=== PATIENT | female | born 1935 | race Two or more races ===

== ENCOUNTER 2020-03-10 16:56 | Inpatient (IN) | payer MEDICARE, OTHER ==
[~2020-03-10] VITALS: Ht 152.4 cm; Wt 59.0 kg
[2020-03-10 16:59] VITALS: BP 118/76
--- NOTE | 2020-03-10 18:01 | Emergency Room Report ---
History of Present Illness General Chief Complaint: Behavioral Complaint Source: Patient, EMS Present Illness HPI 84-year-old female with history of hypertension, depression and anxiety presents to the emergency department complaining of mental exhaustion and increased depression as well as suicidal ideations. Patient denies PSAs. Patient describes being "tired of it all "and states that she wants to "go to sleep forever "when I questioned patient whether she had a plan or not she states that she thought of many different ways and gave the example of "I have lots of medications ". She states she did not attempt to hurt her self yet. Patient is very tearful and describes having a chronically ill who is on dialysis at home for which she is the only caregiver for. She reports history of anxiety attacks in the past and states that usually when she begins hyperventilating she can breathe into a brown bag and her symptoms resolve. Patient reports she had increased generalized anxiety all day and she felt "shaky ". She denies pain at this time. she denies having chest pain, nausea, vomiting, headache, cough, abdominal pain or tenderness. She denies pain at this time. Patient states that for her psychiatric conditions she has a primary prescribing physician and she states she takes Zoloft as well as Ativan. She states she is not out of her psychiatric medications and she has been taking them as described. Allergies: Coded Allergies: No Known Allergies (Verified , 11/10/06) COVID-19 Screening Contact w/high risk pt: No Recent Travel to affected area: No Experienced COVID-19 symptoms?: No Patient History PMH Narrative SOCIAL: Patient reports that she has 3 sons 2 of which are revenue cycle administrator and the other a surgeon and states that they are very busy and are unable to help. Now: No Reviewed Nursing Documentation: PMH: Agreed; PSxH: Agreed Nursing Documentation-PMH Past Medical History: No History, Except For Hx Hypertension: Yes History Of Psychiatric Problem: Yes - anxiety, depression Review of Systems All Other Systems: negative except mentioned in HPI Physical Exam Vital Signs Date Time Temp Pulse Resp B/P (MAP) Pulse Ox O2 Delivery O2 Flow Rate FiO2 03/10/20 16:53 98.8 79 18 121/79 (93) 99 Room Air Sp02 EP Interpretation: reviewed, normal General Appearance: no apparent distress, alert, GCS 15, non-toxic, thin Head: normocephalic, atraumatic Eyes: bilateral eye normal inspection, bilateral eye PERRL ENT: hearing grossly normal, normal voice Neck: full range of motion Respiratory: chest non-tender, lungs clear, normal breath sounds, no respiratory distress, no accessory muscle use, no wheezing, speaking full sentences Cardiovascular #1: regular rate, rhythm, no edema, normal capillary refill Gastrointestinal: normal bowel sounds, non tender, soft, non-distended, no guarding Musculoskeletal: normal range of motion, gait/station normal, non-tender Neurologic: alert, motor strength/tone normal, oriented x3, sensory intact, responsive, speech normal, grossly normal Psychiatric: judgement/insight normal, memory normal, depressed affect, anxious Skin: no rash, normal color Medical Decision Making PA Attestation Dr. Llamas is my supervising Physician whom patient management has been discussed with. Diagnostic Impression: Primary Impression: Generalized weakness Additional Impressions: Anxious depression Encephalopathy ER Course 84-year-old female with history of hypertension, depression and anxiety presents to the emergency department complaining of mental exhaustion and increased depression as well as suicidal ideations. Patient denies PSAs. Patient describes being "tired of it all "and states that she wants to "go to sleep forever "when I questioned patient whether she had a plan or not she states that she thought of many different ways and gave the example of "I have lots of medications ". She states she did not attempt to hurt her self yet. Patient is very tearful and describes having a chronically ill who is on dialysis at home for which she is the only caregiver for. She reports history of anxiety attacks in the past and states that usually when she begins hyperventilating she can breathe into a brown bag and her symptoms resolve. Patient reports she had increased generalized anxiety all day and she felt "shaky ". She denies pain at this time. she denies having chest pain, nausea, vomiting, headache, cough, abdominal pain or tenderness. She denies pain at this time. Patient states that for her psychiatric conditions she has a primary prescribing physician and she states she takes Zoloft as well as Ativan. She states she is not out of her psychiatric medications and she has been taking them as described. Pt is very tearful with depressed affect. Ddx considered but are not limited to OD, SI/HI, psychosis, UTI, intoxication, depression, non-compliance or non-therapeutic level of medications, Anxiety attack, Vital signs: are WNL, pt. is afebrile H&PE are most consistent with behavioral/mental health issue- Increased Depression. No acute respiratory distress at this time. Non-toxic in appearance. Pt. very tearful. ORDERS: -CBC, CMP: Unremarkable -UA: negative for infection see results attached. -UDS: negative -Salicylates and Acetaminophen: WNL -Serum ETOH-: No acute intoxication. ED INTERVENTIONS: - 500cc NS IV DISPOSITION: PT. to be admitted to Dr. Ken who agrees to medically manage pt. for generalized encephalopathy, weakness and increased depression in addition to pending PET eval. Labs Test 03/10/20 17:50 White Blood Count 5.7 K/UL (4.8-10.8) Red Blood Count 4.44 M/UL (4.20-5.40) Hemoglobin 11.4 G/DL (12.0-16.0) Hematocrit 37.0 % (37.0-47.0) Mean Corpuscular Volume 83 FL (80-99) Mean Corpuscular Hemoglobin 25.6 PG (27.0-31.0) Mean Corpuscular Hemoglobin Concent 30.7 G/DL (32.0-36.0) Red Cell Distribution Width 14.4 % (11.6-14.8) Platelet Count 183 K/UL (150-450) Mean Platelet Volume 10.0 FL (6.5-10.1) Neutrophils (%) (Auto) 57.8 % (45.0-75.0) Lymphocytes (%) (Auto) 32.1 % (20.0-45.0) Monocytes (%) (Auto) 6.6 % (1.0-10.0) Eosinophils (%) (Auto) 1.8 % (0.0-3.0) Basophils (%) (Auto) 1.7 % (0.0-2.0) Sodium Level 143 MMOL/L (136-145) Potassium Level 3.9 MMOL/L (3.5-5.1) Chloride Level 106 MMOL/L (98-107) Carbon Dioxide Level 29 MMOL/L (21-32) Anion Gap 8 mmol/L (5-15) Blood Urea Nitrogen 20 mg/dL (7-18) Creatinine 1.2 MG/DL (0.55-1.30) Estimat Glomerular Filtration Rate 43.0 mL/min (>60) Glucose Level 97 MG/DL (74-106) Calcium Level 9.3 MG/DL (8.5-10.1) Total Bilirubin 0.3 MG/DL (0.2-1.0) Aspartate Amino Transf (AST/SGOT) 20 U/L (15-37) Alanine Aminotransferase (ALT/SGPT) 19 U/L (12-78) Alkaline Phosphatase 83 U/L (46-116) Total Protein 6.9 G/DL (6.4-8.2) Albumin 3.9 G/DL (3.4-5.0) Globulin 3.0 g/dL Albumin/Globulin Ratio 1.3 (1.0-2.7) Salicylates Level 2.5 ug/mL (2.8-20) Urine Opiates Screen Negative (NEGATIVE) Acetaminophen Level < 2 MCG/ML (10-30) Urine Barbiturates Screen Negative (NEGATIVE) Phencyclidine (PCP) Screen Negative (NEGATIVE) Urine Amphetamines Screen Negative (NEGATIVE) Urine Benzodiazepines Screen Negative (NEGATIVE) Urine Cocaine Screen Negative (NEGATIVE) Urine Marijuana (THC) Screen Negative (NEGATIVE) Serum Alcohol < 3 mg/dL Last Vital Signs Date Time Temp Pulse Resp B/P (MAP) Pulse Ox O2 Delivery O2 Flow Rate FiO2 03/10/20 16:59 98.5 76 16 118/76 99 Room Air Disposition: ADMITTED INPATIENT Condition: Eri Clarke Mar 10, 2020 18:01
[2020-03-10 18:16] LABS: ANION GAP 8 mmol/L (5-15); BLOOD UREA NITROGEN 20 mg/dL (7-18); CALCIUM 9.3 MG/DL (8.5-10.1); CARBON DIOXIDE 29 MMOL/L (21-32); CHLORIDE 106 MMOL/L (98-107); CREATININE 1.2 MG/DL (0.55-1.30); POTASSIUM 3.9 MMOL/L (3.5-5.1); SODIUM 143 MMOL/L (136-145)
[2020-03-10 18:17] LABS: BASOPHILS % (AUTO) 1.7 % (0.0-2.0); EOSINOPHILS % (AUTO) 1.8 % (0.0-3.0); HEMOGLOBIN 11.4 G/DL (12.0-16.0); LYMPHOCYTES % (AUTO) 32.1 % (20.0-45.0); MEAN CORPUSCULAR VOLUME 83 FL (80-99); MONOCYTES % (AUTO) 6.6 % (1.0-10.0); NEUTROPHILS % (AUTO) 57.8 % (45.0-75.0); PLATELET COUNT 183 K/UL (150-450); RED BLOOD COUNT 4.44 M/UL (4.20-5.40); RED CELL DISTRIBUTION WIDTH 14.4 % (11.6-14.8); WHITE BLOOD COUNT 5.7 K/UL (4.8-10.8)
[2020-03-10 18:21] LABS: ALANINE AMINOTRANSFERASE 19 U/L (12-78); ALBUMIN 3.9 G/DL (3.4-5.0); ALBUMIN/GLOBULIN RATIO 1.3 (1.0-2.7); ALKALINE PHOSPHATASE 83 U/L (46-116); ASPARTATE AMINO TRANSFERASE 20 U/L (15-37); BILIRUBIN,TOTAL 0.3 MG/DL (0.2-1.0)
[2020-03-10 18:35] VITALS: BP 120/72
[2020-03-10] MEDS ORDERED: ATIVAN2 MG ORAL (19:17)
[2020-03-10] MEDS ORDERED: SERTRALINE HCL100 MG PO (19:17)
[2020-03-10 19:18] VITALS: BP 115/69
--- NOTE | 2020-03-10 21:03 | History and Physical ---
History of Present Illness General Date patient seen: Mar 10, 2020 Reason for Hospitalization: Behavioral Complaint Present Illness HPI Patient is a very pleasant 84F with essential hypertension, depressive disorder and anxiety presenting with generalized weakness and severe anxiety. Patient reports of multiple life related stressors, mainly living with a sick who requires hemodialysis. She states that today she became more anxious than usual and experienced rapid heart rate, palpitation and clamminess. Denies any CP/SOB/n/v/d/f/c. Patient reports of suicidal ideation but denies any active plans to harm herself or others. She reports for the first time having the thought of "taking the entire bottle of Ativan". She denies any delusion, visual or auditory hallucinations. Patient reports of taking Zoloft and Ativan for years to control her anxiety and depression. She reports that her condition has been worsened since 4 years ago after her 30-year old grandchild . Patient reports of needing assistance at home given her age and the 's multiple medical problems. In the ED, patient's vitals were within the normal range. Lab values including CBC,CMP and Utox were unrevealing. Allergies: Coded Allergies: No Known Allergies (Verified , 11/10/06) COVID-19 Screening Contact w/high risk pt: No Recent Travel to affected area: No Experienced COVID-19 symptoms?: No Medication History Scheduled Lorazepam* (Ativan*), 2 MG ORAL Q12HR, (Reported) Sertraline Hcl* (Zoloft*), 200 MG PO DAILY, (Reported) Patient History Healthcare decision maker Resuscitation status Advanced Directive on File Past Medical/Surgical History Past Medical/Surgical History: (1) Hypertension Review of Systems Constitutional: Reports: no symptoms, weakness - complains of generalized weakness. Eye: Reports: no symptoms ENT: Reports: no symptoms Respiratory: Reports: no symptoms Cardiovascular: Reports: no symptoms Gastrointestinal: Reports: no symptoms Genitourinary: Reports: no symptoms Musculoskeletal: Reports: no symptoms Skin: Reports: no symptoms Psychiatric: Reports: anxiety, depressed feelings, emotional problems, SI Neurological: Reports: no symptoms Endocrine: Reports: no symptoms Hematologic/Lymphatic: Reports: no symptoms Physical Exam General Appearance: no apparent distress, alert, lethargic Lines, tubes and drains: peripheral HEENT: normocephalic, atraumatic, EOMI, pharynx normal, supple Neck: non-tender, normal alignment, normal inspection Respiratory/Chest: chest wall non-tender, lungs clear, normal breath sounds, no respiratory distress, no accessory muscle use Cardiovascular/Chest: normal peripheral pulses, normal rate, regular rhythm, regularly irregular Abdomen: normal bowel sounds, non tender, soft, no organomegaly, no mass Extremities: normal range of motion, non-tender, normal inspection, no calf tenderness Skin Exam: normal pigmentation 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 normal, alert, oriented x 3 Musculoskeletal: normal muscle bulk Last 24 Hour Vital Signs Date Time Temp Pulse Resp B/P (MAP) Pulse Ox O2 Delivery O2 Flow Rate FiO2 03/10/20 20:37 98.0 75 17 112/72 98 Room Air 03/10/20 19:18 78 16 115/69 99 Room Air 03/10/20 18:35 98.2 81 18 120/72 98 Room Air 03/10/20 16:59 98.5 76 16 118/76 99 Room Air 03/10/20 16:59 76 16 Room Air 03/10/20 16:53 98.8 79 18 121/79 (93) 99 Room Air Laboratory Tests Test 03/10/20 17:50 White Blood Count 5.7 K/UL (4.8-10.8) Red Blood Count 4.44 M/UL (4.20-5.40) Hemoglobin 11.4 G/DL (12.0-16.0) L Hematocrit 37.0 % (37.0-47.0) Mean Corpuscular Volume 83 FL (80-99) Mean Corpuscular Hemoglobin 25.6 PG (27.0-31.0) L Mean Corpuscular Hemoglobin Concent 30.7 G/DL (32.0-36.0) L Red Cell Distribution Width 14.4 % (11.6-14.8) Platelet Count 183 K/UL (150-450) Mean Platelet Volume 10.0 FL (6.5-10.1) Neutrophils (%) (Auto) 57.8 % (45.0-75.0) Lymphocytes (%) (Auto) 32.1 % (20.0-45.0) Monocytes (%) (Auto) 6.6 % (1.0-10.0) Eosinophils (%) (Auto) 1.8 % (0.0-3.0) Basophils (%) (Auto) 1.7 % (0.0-2.0) Sodium Level 143 MMOL/L (136-145) Potassium Level 3.9 MMOL/L (3.5-5.1) Chloride Level 106 MMOL/L (98-107) Carbon Dioxide Level 29 MMOL/L (21-32) Anion Gap 8 mmol/L (5-15) Blood Urea Nitrogen 20 mg/dL (7-18) H Creatinine 1.2 MG/DL (0.55-1.30) Estimat Glomerular Filtration Rate 43.0 mL/min (>60) Glucose Level 97 MG/DL (74-106) Calcium Level 9.3 MG/DL (8.5-10.1) Total Bilirubin 0.3 MG/DL (0.2-1.0) Aspartate Amino Transf (AST/SGOT) 20 U/L (15-37) Alanine Aminotransferase (ALT/SGPT) 19 U/L (12-78) Alkaline Phosphatase 83 U/L (46-116) Total Protein 6.9 G/DL (6.4-8.2) Albumin 3.9 G/DL (3.4-5.0) Globulin 3.0 g/dL Albumin/Globulin Ratio 1.3 (1.0-2.7) Salicylates Level 2.5 ug/mL (2.8-20) L Urine Opiates Screen Negative (NEGATIVE) Acetaminophen Level < 2 MCG/ML (10-30) L Urine Barbiturates Screen Negative (NEGATIVE) Phencyclidine (PCP) Screen Negative (NEGATIVE) Urine Amphetamines Screen Negative (NEGATIVE) Urine Benzodiazepines Screen Negative (NEGATIVE) Urine Cocaine Screen Negative (NEGATIVE) Urine Marijuana (THC) Screen Negative (NEGATIVE) Serum Alcohol < 3 mg/dL Height (Feet): 5 Weight (Pounds): 130 Assessment/Plan Assessment/Plan: 84YO F with HTN, anxiety disorder and depression presenting with generalized weakness, severe anxiety and suicidal ideation. Initial medical work up unremarkable. Patient being admitted for further observation and medical management. #Generalized weakness #Anxiety #Panic Disorder #Depression #Encephalopathy 2/2 above -CBC, CMP: Unremarkable -UA: negative for infection see results attached. -UDS: negative -Salicylates and Acetaminophen: WNL -Serum ETOH-: No acute intoxication. -Resume home medications including ativan and zoloft. -Will request psych consult in the a.m for possibly modifying the medication regimen. -bakery worker conveyor line consult prior to discharge to provide outpatient resources such as support groups. -PT/OT. Essential Hypertension: -Resume home antihypertensives . I spent 70 minutes on this patient's case, and >50% was dedicated to counseling and/or care coordination. ~I spent an additional 35 minutes on review of medical records including prior records, consult notes, progress notes, procedures, imaging, labs, hemodynamics , and other clinical documentation. Leighton Feliciano M.D. Mar 10, 2020 21:03
[2020-03-10] MEDS ORDERED: LORazepam 1mg tab ORAL ONE (22:15)
[2020-03-10] MEDS ORDERED: Lomotil 2.5mg tab ORAL PRN (22:15)
[2020-03-10 23:44] VITALS: BP 146/78
[2020-03-11 04:00] VITALS: BP 130/65
[2020-03-11 06:17] LABS: BASOPHILS % (AUTO) 1.2 % (0.0-2.0); EOSINOPHILS % (AUTO) 2.2 % (0.0-3.0); HEMATOCRIT 31.9 % (37.0-47.0); HEMOGLOBIN 10.4 G/DL (12.0-16.0); LYMPHOCYTES % (AUTO) 36.8 % (20.0-45.0); MEAN CORPUSCULAR VOLUME 80 FL (80-99); MONOCYTES % (AUTO) 9.1 % (1.0-10.0); NEUTROPHILS % (AUTO) 50.6 % (45.0-75.0); PLATELET COUNT 155 K/UL (150-450); RED CELL DISTRIBUTION WIDTH 12.4 % (11.6-14.8); WHITE BLOOD COUNT 4.7 K/UL (4.8-10.8)
[2020-03-11 06:38] LABS: CHLORIDE 107 MMOL/L (98-107); POTASSIUM 3.9 MMOL/L (3.5-5.1); SODIUM 142 MMOL/L (136-145)
[2020-03-11 07:47] LABS: ALANINE AMINOTRANSFERASE 18 U/L (12-78); ALBUMIN 3.5 G/DL (3.4-5.0); ALBUMIN/GLOBULIN RATIO 1.3 (1.0-2.7); ALKALINE PHOSPHATASE 71 U/L (46-116); ANION GAP 8 mmol/L (5-15); ASPARTATE AMINO TRANSFERASE 18 U/L (15-37); BILIRUBIN,TOTAL 0.4 MG/DL (0.2-1.0); BLOOD UREA NITROGEN 20 mg/dL (7-18); CARBON DIOXIDE 27 MMOL/L (21-32); CREATININE 1.1 MG/DL (0.55-1.30)
[2020-03-11 08:00] VITALS: BP 143/63
[2020-03-11] MEDS: Heparin 5000 units/ml inj SUBQ SCH ×2 (09:40→20:42)
[2020-03-11 12:00] VITALS: BP 129/62
--- NOTE | 2020-03-11 13:49 | General Progress Note ---
Assessment/Plan Assessment/Plan: 84YO F with HTN, anxiety disorder and depression presenting with generalized weakness, severe anxiety and suicidal ideation. Initial medical work up unremarkable. #Generalized weakness #Anxiety #Panic Disorder #Depression #Acute stress reaction #Transient Acute Encephalopathy 2/2 above -CBC, CMP: Unremarkable -UA: negative for infection see results attached. -UDS: negative -Salicylates and Acetaminophen: WNL -Serum ETOH-: No acute intoxication. -Resume home medications including ativan and zoloft. -Psychiatry and Neurology consulted -fruit or nut farmworker consult prior to discharge to provide outpatient resources such as support groups. -PT/OT. Essential Hypertension -Need complete home med list I spent 35 minutes on this patient's case, and 20 min was dedicated to counseling and/or care coordination with other MDs, family, nursing I spent an additional 35 minutes on review of medical records including prior hospital records, consult notes, progress notes, procedures, imaging, labs, hemodynamics, and other clinical documentation. Time of note may not reflect time of encounter. Subjective Date patient seen: Mar 11, 2020 Time patient seen: 13:47 Constitutional: Denies: chills, fever Cardiovascular: Denies: chest pain Respiratory: Denies: cough Gastrointestinal/Abdominal: Denies: abdominal pain Genitourinary: Denies: burning Neurologic/Psychiatric: Reports: depressed, emotional problems; Denies: anxiety , headache, numbness Endocrine: Denies: excessive sweating, flushing Allergies: Coded Allergies: No Known Allergies (Verified , 11/10/06) Subjective Follow up for acute stress reaction, anxiety, increased psychosocial stressors, transient acute encephalopathy. Remains tearful and sad about her home/financial situation and inability to adequately care for her debilitated . Patient denies suicidal ideations at this time. Objective Last 24 Hour Vital Signs Date Time Temp Pulse Resp B/P (MAP) Pulse Ox O2 Delivery O2 Flow Rate FiO2 03/11/20 09:00 Room Air 03/11/20 08:00 97.7 63 18 143/63 (89) 97 03/11/20 04:00 98.2 60 18 130/65 (86) 96 03/10/20 23:44 99.3 63 18 146/78 (100) 97 03/10/20 23:10 Room Air 03/10/20 20:37 98.0 75 17 112/72 98 Room Air 03/10/20 19:18 78 16 115/69 99 Room Air 03/10/20 18:35 98.2 81 18 120/72 98 Room Air 03/10/20 16:59 98.5 76 16 118/76 99 Room Air 03/10/20 16:59 76 16 Room Air 03/10/20 16:53 98.8 79 18 121/79 (93) 99 Room Air Intake and Output 03/10/20 03/11/20 19:00 07:00 Intake Total 480 ml Balance 480 ml Intake Oral 480 ml # Voids 2 Laboratory Tests 03/10/20 17:50: White Blood Count 5.7, Red Blood Count 4.44, Hemoglobin 11.4L, Hematocrit 37.0, Mean Corpuscular Volume 83, Mean Corpuscular Hemoglobin 25.6L, Mean Corpuscular Hemoglobin Concent 30.7L, Red Cell Distribution Width 14.4, Platelet Count 183, Mean Platelet Volume 10.0, Neutrophils (%) (Auto) 57.8, Lymphocytes (%) (Auto) 32.1, Monocytes (%) (Auto) 6.6, Eosinophils (%) (Auto) 1.8, Basophils (%) (Auto ) 1.7, Sodium Level 143, Potassium Level 3.9, Chloride Level 106, Carbon Dioxide Level 29, Anion Gap 8, Blood Urea Nitrogen 20H, Creatinine 1.2, Estimat Glomerular Filtration Rate 43.0, Glucose Level 97, Calcium Level 9.3, Total Bilirubin 0.3, Aspartate Amino Transf (AST/SGOT) 20, Alanine Aminotransferase ( ALT/SGPT) 19, Alkaline Phosphatase 83, Total Protein 6.9, Albumin 3.9, Globulin 3.0, Albumin/Globulin Ratio 1.3, Salicylates Level 2.5L, Urine Opiates Screen Negative, Acetaminophen Level < 2L, Urine Barbiturates Screen Negative, Phencyclidine (PCP) Screen Negative, Urine Amphetamines Screen Negative, Urine Benzodiazepines Screen Negative, Urine Cocaine Screen Negative, Urine Marijuana (THC) Screen Negative, Serum Alcohol < 3 03/11/20 05:10: White Blood Count 4.7L, Red Blood Count 4.00L, Hemoglobin 10.4L, Hematocrit 31.9L, Mean Corpuscular Volume 80, Mean Corpuscular Hemoglobin 26.1L, Mean Corpuscular Hemoglobin Concent 32.7, Red Cell Distribution Width 12.4, Platelet Count 155, Mean Platelet Volume 7.7, Neutrophils (%) (Auto) 50.6, Lymphocytes (% ) (Auto) 36.8, Monocytes (%) (Auto) 9.1, Eosinophils (%) (Auto) 2.2, Basophils ( %) (Auto) 1.2, Sodium Level 142, Potassium Level 3.9, Chloride Level 107, Carbon Dioxide Level 27, Anion Gap 8, Blood Urea Nitrogen 20H, Creatinine 1.1, Estimat Glomerular Filtration Rate 47.6, Glucose Level 88, Calcium Level 9.0, Total Bilirubin 0.4, Aspartate Amino Transf (AST/SGOT) 18, Alanine Aminotransferase (ALT/SGPT) 18, Alkaline Phosphatase 71, Total Protein 6.2L, Albumin 3.5, Globulin 2.7, Albumin/Globulin Ratio 1.3 Height (Feet): 5 Height (Inches): 0.00 Weight (Pounds): 130 General Appearance: no apparent distress, alert Neck: normal alignment, supple Cardiovascular: normal rate, regular rhythm Respiratory/Chest: lungs clear, normal breath sounds, no respiratory distress Abdomen: non tender, soft 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
[2020-03-11 16:00] VITALS: BP 143/63
[2020-03-11] MEDS: Sertraline 100mg tab ORAL SCH (17:20)
[2020-03-11 20:22] VITALS: BP 124/58
[2020-03-11] MEDS ORDERED: LORazepam 1mg tab ORAL SCH (21:00)
[2020-03-12] VITALS: BP 134/62
--- NOTE | 2020-03-12 03:00 | Consultation ---
DATE OF CONSULTATION: 03/10/2020 HISTORY OF PRESENT ILLNESS: This is an 84-year-old female with a history of depression and anxiety who is currently on Zoloft and Ativan who was admitted to the hospital due to weakness. The patient has a history of hypertension and stated that she has been taking care of her sick for the past 4 years. 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 The patient stated that she is excessively depressed and anxious. She currently has a psychiatrist that she sees regularly, reluctant to change her medication. She denied any suicidal or homicidal ideation. She stated that she had thoughts of taking the entire bottle, however, she would never do that. She also elaborated on her losing her grandson four years ago. She denied any hallucinations. No suicidal or homicidal ideations. PAST PSYCHIATRIC HISTORY: Dementia and anxiety. PAST MEDICAL HISTORY: Hypertension and hyperlipidemia. ALLERGIES: No known drug allergies. SUBSTANCE ABUSE HISTORY: No known history of illicit drug use or alcohol. MENTAL STATUS EXAMINATION: Alert and oriented times self, place and situation. Mood is anxious. Affect is constricted. Congruent with mood. Thought process is concrete. Thought content, no suicidal or homicidal ideation. DIAGNOSES: AXIS I: 1. Anxiety disorder. 2. Major depressive disorder. AXIS II: Deferred. AXIS III: As above. AXIS IV: As above. AXIS V: 50. PLAN: 1. Zoloft 200 mg in the morning. 2. Ativan as needed. 3. Provide the patient with reality orientation and supportive therapy. Jerica Sanabria M.D. DR: Maryam JOB#: [id number] CC: ELENO
[2020-03-12 04:00] VITALS: BP 126/62
[2020-03-12 08:00] VITALS: BP 141/65
[2020-03-12] MEDS: Heparin 5000 units/ml inj SUBQ SCH (08:18)
[2020-03-12] MEDS: Sertraline 100mg tab ORAL SCH (08:22)
--- NOTE | 2020-03-12 11:22 | Discharge Summary ---
Discharge Summary Hospital Course Date of Admission Mar 10, 2020 at 18:50 Date of Discharge 03/12/20 Admitting Diagnosis encephalopathy, weakness HPI Mariam Pizarro is a 84 year old female who was admitted on Mar 10, 2020 at 18:50 for Encephalopathy, Weakness Consultations Psychiatry Procedures None Hospital Course 84YO F with HTN, anxiety disorder and depression presenting with generalized weakness, severe anxiety and transient passive suicidal ideation. Initial medical work up unremarkable. Seen by Psychiatry who cleared the patient for discharge home, not change to her psychotropic meds. She will follow up with her outpatient psychiatrist. Home health to be arranged by case management. #Generalized weakness #Anxiety #Panic Disorder #Depression #Acute stress reaction #Transient Acute Encephalopathy 2/2 above #Essential Hypertension I spent 35 minutes on this patient's discharge Discharge Medications Continued Medications: Lorazepam* (Ativan*) 2 Mg Tablet 2 MG ORAL Q12HR for anxiety, TAB Sertraline Hcl* (Zoloft*) 100 Mg Tablet 200 MG PO DAILY for depression, TAB Discharge Condition Upon Discharge: stable Discharge Vital Signs Last Vital Signs Date Time Temp Pulse Resp B/P (MAP) Pulse Ox O2 Delivery O2 Flow Rate FiO2 03/12/20 08:00 98.2 65 18 141/65 (90) 96 03/11/20 20:09 Room Air Discharge Disposition Patient was discharged to home with home health Discharge Diagnoses: (1) Anxious depression (2) Encephalopathy John Solares MD Mar 12, 2020 11:22
[2020-03-12] MEDS ORDERED: LORazepam 0.5mg tab ORAL SCH (11:30)
[2020-03-12 12:00] VITALS: BP 135/80
--- NOTE | 2020-03-12 20:16 | Consultation ---
History of Present Illness General Date patient seen: Mar 12, 2020 Reason for Hospitalization: Behavioral Complaint Present Illness HPI 84F with essential hypertension, depressive disorder and anxiety presenting with generalized weakness and severe anxiety. Patient reports of multiple life related stressors, mainly living with a sick who requires hemodialysis. She states that today she became more anxious than usual and experienced rapid heart rate, palpitation and clamminess. Denies any CP/SOB/n/v/d/f/c. Patient reports of suicidal ideation but denies any active plans to harm herself or others. She reports for the first time having the thought of "taking the entire bottle of Ativan". She denies any delusion, visual or auditory hallucinations. Patient reports of taking Zoloft and Ativan for years to control her anxiety and depression. She reports that her condition has been worsened since 4 years ago after her 30-year old grandchild . Patient reports of needing assistance at home given her age and the 's multiple medical problems. seen by psych and cleared for dc Allergies: Coded Allergies: No Known Allergies (Verified , 11/10/06) COVID-19 Screening Contact w/high risk pt: No Recent Travel to affected area: No Experienced COVID-19 symptoms?: No Medication History Scheduled Lorazepam* (Ativan*), 2 MG ORAL Q12HR, (Reported) Sertraline Hcl* (Zoloft*), 200 MG PO DAILY, (Reported) Patient History Healthcare decision maker Resuscitation status Full Code Advanced Directive on File Review of Systems Review of Symptoms General ROS: no weight loss or fever Psychological ROS: no depression or mood changes, no memory loss Ophthalmic ROS: no visual changes or eye irritation ENT ROS: no nasal congestion, hearing loss, dizziness Allergy and Immunology ROS: no allergic symptoms or urticaria Hematological and Lymphatic ROS: no swollen glands, unusual bleeding or bruising Endocrine ROS: no polyuria, polydipsia, weight changes, temperature intolerance Respiratory ROS: no cough, shortness of breath, or wheezing Cardiovascular ROS: no chest pain or dyspnea on exertion Gastrointestinal ROS: denies abdominal pain, bright red blood in stool. Musculoskeletal ROS: no myalgias or arthralgias Neurological ROS: no TIA or stroke symptoms Dermatological ROS: no new or changing skin lesions, rashes or pruritis Physical Exam Physical Exam General appearance: alert, cooperative, no distress, appears stated age Head: Normocephalic, without obvious abnormality, atraumatic Eyes: conjunctivae/corneas clear. PERRL, EOM's intact. Fundi benign Throat: Lips, mucosa, and tongue normal. Teeth and gums normal Neck: supple, symmetrical, trachea midline, no adenopathy, thyroid: not enlarged, symmetric, no tenderness/mass/nodules, no carotid bruit and no JVD Lungs: clear to auscultation bilaterally Heart: regular rate and rhythm, S1, S2 normal, no murmur, click, rub or gallop Abdomen: soft, non-tender. Bowel sounds normal. No masses, no organomegaly Extremities: extremities normal, atraumatic, no cyanosis or edema Pulses: 2+ and symmetric Skin: Skin color, texture, turgor normal. No rashes or lesions Neurologic: Grossly normal Last 24 Hour Vital Signs Date Time Temp Pulse Resp B/P (MAP) Pulse Ox O2 Delivery O2 Flow Rate FiO2 03/12/20 12:00 98.2 70 18 135/80 (98) 9 03/12/20 09:00 Room Air 03/12/20 08:00 98.2 65 18 141/65 (90) 96 03/12/20 04:00 97.7 61 18 126/62 (83) 95 03/12/20 00:00 98.2 61 18 134/62 (86) 97 03/11/20 20:22 97.7 70 18 124/58 (80) 94 Intake and Output 03/11/20 03/12/20 19:00 07:00 Intake Total 960 ml 250 ml Balance 960 ml 250 ml Intake Oral 960 ml Other 250 ml # Voids 4 2 Height (Feet): 5 Height (Inches): 0.00 Weight (Pounds): 130 Assessment/Plan Problem List: (1) Hypertension ICD Codes: I10 - Essential (primary) hypertension SNOMED: [id number] Assessment/Plan: encephalopathy catatonia depression ssri per psych pt ot [facility] Hospital declaration INPATIENT level of care is warranted for this patient because patient is a 89 year old with who presents with suspicion of . I have a high level of concern because . Patient is at high risk for . Plan of care/treatment include . Patient care is expected to be greater than 2 midnights. OBSERVATION level of care is warranted for this patient. Patient is a 89 year old with who presents with . Patient will be admitted for 1 midnight, but if additional night(s) is/are necessary, patient will be converted to inpatient status for the entire hospitalization Disposition: Once the patient is stable to leave the hospital, I anticipate the patient will likely be discharged to the following environment: Estimated discharge date: I spent 70 minutes on this patient's case, and minutes was dedicated to counseling and/or care coordination. MIPS ([employer]-based Incentive Payment System) Applicable CPT: 15656, 41856 CHECK ALL THAT ARE MET: Measure #5 (CHF): All ages. Prescribe BEATRIZ/ARB upon discharge for patients with left ventricular systolic dysfunction. If not, the reason is clearly documented in the medical chart. Measure #8 (CHF): All ages. Prescribe a beta gigi upon discharge for patients with left ventricular systolic dysfunction. If not, the reason is clearly documented in the medical chart. Measure #47 Advance care plan or surrogate decision maker documented in the medical record. Measure #130 The provider has documented, updated, or reviewed the patients current medication list and has documented it in the patients note. Measure #374 (All): Send report to referring provider. Measure #407(Sepsis due to MSSA bacteremia): Age 18+ Patient treated with a beta-lactam antibiotic (Nafcillin, Oxacillin or Cefazolin) as definitive therapy. MEDICAL COMPLEXITY High complexity medical decision making (need 2/3 categories) Problem - need 4 points Acute/new problem with new plan for workup (4 points, 1 max) Acute/new problem without additional workup (3 points, 1 max) Unstable chronic problem actively being managed (2 point each, 2 max) Stable chronic problem actively being managed (1 point each, 2 max) Self-limited/transient process (constipation, muscle ache, etc) (1 point each , 2 max) Data - need 4 points Reviewed labs/imaging studies (1 points, 2 max) Independent review of imaging (EKG, xrays, etc) (2 points, 2 max) Discussed case with consult/other MD/RN (2 points, 2 max) High Risk - qualify if have one of the following: Severe exacerbation of acute problem, acute mental status change, IV narcotics , monitoring drug levels (vancomycin, INR, tacrolimus etc) Michelet Bonilla MD Mar 12, 2020 20:15
--- NOTE | 2020-03-12 23:00 | Progress Note ---
DATE: 03/12/2020 SUBJECTIVE: The patient is doing better today. No behavior issues noted. Calm, cooperative, and elaborated on her life events, has a psychiatrist that she is followed. MENTAL STATUS EXAMINATION: The patient is alert, oriented times self, place, situation. Mood is neutral. Affect is full range. Congruent with mood. Thought process linear and goal oriented. Thought content, no suicidal or homicidal ideation. Cognition is intact. Insight and judgment is fair. ASSESSMENT: Stable. PLAN: 1. We will continue current medications. 2. Provide the patient with reality orientation and supportive therapy . Jerica Sanabria M.D. DR: Jones JOB#: [id number] CC:
== END 2020-03-12 12:57 | disposition home or self-care (01) | DRG 880 ==
LOC: EDBD 16:56 → EMR 17:15 → 4E 18:50 → EDBEDREQ 19:37 → 4E 20:42 → UNDODISIN 03-12 12:57
DX: F41.8 Other specified anxiety disorders (principal); G93.49 Other encephalopathy; R45.851 Suicidal ideations; F43.0 Acute stress reaction; F41.0 Panic disorder [episodic paroxysmal anxiety]; I10 Essential (primary) hypertension; E78.5 Hyperlipidemia, unspecified; R53.1 Weakness
CPT/HCPCS: 36415; 80053; 80307; 85025; 99285; G0480